=== PATIENT | female | born 1990 | race Caucasian/White ===

== ENCOUNTER 2021-08-03 20:23 | Inpatient (IN) | payer BC, OTHER, SELFPAY ==
[2021-08-03] VITALS (13 sets, daily range): BP systolic 107–130; BP diastolic 66–83; PULSE 57–80; RESP 16; BMI 22.6
[2021-08-03 22:50] LABS: Basophils % 0.1 %; Eosinophils % 0.4 %; Hematocrit 36.1 % (37.0-47.0); Lymphocytes # 1.7 10^3/uL (0.8-4.8); Lymphocytes % 23.8 %; Mean Corpuscular HGB Conc 33.2 g/dL (30.0-36.0); Mean Corpuscular Hemoglobin 28.4 pg (28.0-34.0); Mean Corpuscular Volume 85.3 fl (81-99); Mean Platelet Volume 10.5 fL (7.4-10.4); Monocytes # 0.5 10^3/uL (0.2-0.9); Monocytes % 6.5 %; Neutrophils # 4.89 10^3/uL (1.8-7.7); Neutrophils % 68.6 %; Nucleated Red Blood Cells % 0 %; Platelet Count 249 10^3/cmm (130-400); Red Blood Count 4.23 10^6/uL (4.1-5.3); Red Cell Distribution Width 12.9 % (12.1-15.1); White Blood Count 7.1 10^3/uL (4.0-10.0)
[2021-08-04] VITALS (39 sets, daily range): BP systolic 108–150; BP diastolic 62–92; PULSE 49–90; TEMP 36.4–37.2; O2SAT 97–99
[2021-08-04] MEDS: alum-mag-hydroxide-sime 30 mL UDC PO (01:47)
[2021-08-04 09:28] LABS: Glucose Point of Care 79 mg/dL (70-110)
[2021-08-04] MEDS: dextrose 5%-lactated ringers 1,000 ML 125 ML IV (17:11)
[2021-08-04] MEDS: oxytocin 30 UNIT/500 ML BAG 4 UNIT IV (17:20)
[2021-08-04] MEDS: lactated ringers 1,000 ML 999 ML IV (19:50)
--- NOTE | 2021-08-04 20:57 | ANES.PREANE2 ---
Pre-Anesthetic Assessment Height/Weight: Height 1.68 m Weight 63.503 kg Temp Pulse Resp BP 98.4 F 64 16 133/91 08/04/21 18:57 08/04/21 19:59 08/03/21 22:06 08/04/21 19:59 Preop Diagnosis: labor epidural Familial anesthetic complications: Grandfather on moms side had MH. Nobody in family has been tested Was Beta Pattie taken within 24 hours: N/A Was Clonidine taken within 24 hours: N/A Last Intake: 14:00 Social No alcohol and No tobacco Exam alert, oriented x 3, clear to auscultation bilaterally and regular rate & rhythm Airway Submandibular: within normal limits Cervical ROM: within normal limits Mallampati: Class II Dentition: full Pulmonary None reported CV/HEM None reported None reported Hepatic None reported GI Gastroesophageal Reflux Disease (with ) Metabolic Diabetes Mellitus (gestational DM diet controlled) and None reported Musc/skel None reported Neuropsych None reported Anesthetic Plan ASA status: 2 Anesthesia: Regional (specify below) (epidural) Risk of > 500 ml blood loss (7ml/kg in children): No Medications/Allergies Home Medications Medication Instructions Recorded Confirmed Last Taken Type No Known Home Medications 08/04/21 08/04/21 Unknown History Allergies Allergy/AdvReac Type Severity Reaction Status Date / Time No Known Allergies Allergy Verified 08/04/21 09:15 Current Medications Generic Name Dose Route Start Last Admin Trade Name Freq PRN Reason Stop Dose Admin Al Hydrox/Mg Hydrox/Simethicone 30 ml 08/03/21 22:06 08/04/21 01:47 Pdvc-Vqi-Gfdfzagqi-Jewel 30 Ml Udc PO 30 ml Q4H PRN Administration INDIGESTION Dextrose/Lactated Ringer's 1,000 mls @ 125 mls/hr 08/03/21 22:15 08/04/21 17:11 Dextrose 5%-Lactated Ringers IV 125 mls/hr .Q8H SHIV Administration Oxytocin 30 unit in 500 mls @ 1 mls/hr 08/04/21 16:30 08/04/21 19:40 Pitocin IV 18 milliunit/min .Q24H SHIV 18 mls/hr Titration Protocol 1 MILLIUNIT/MIN Lactated Ringer's 1,000 mls @ 999 mls/hr 08/04/21 19:44 08/04/21 19:50 Lactated Ringers IV 999 mls/hr .Q1H1M PRN Administration See label comments PFSH Anesthesia Female Reproductive History : 2 Data Anesthesia : 08/03/21 22:35 Short CBC 08/03/21 Range/Units 22:35 WBC 7.1 (4.0-10.0) 10^3/uL Hgb 12.0 (11.5-15.3) g/dL Hct 36.1 L (37.0-47.0) % MCV 85.3 (81-99) fl Plt Count 249 (130-400) 10^3/cmm Neut % (Auto) 68.6 % Neut # (Auto) 4.89 (1.8-7.7) 10^3/uL Cardiac Studies: No Data to Display
--- NOTE | 2021-08-04 21:35 | ANES.PROC ---
Anesthesia Procedures Procedure/Date: 08/04/21 Epidural: Time Out Performed: Yes Consents Signed: Procedure Consent and NPO Consent Consent: requested by attending/covering physician, from patient, risks and benefits reviewed and patient agrees to proceed Lumbar Level: L3-L4 Epidural position: sitting Epidural procedure: sterile prep of area (betadine), 1% lidocaine to numb the area (3ml), 18 g needle, negative for paresthesia passed, neg for paresthesia, test dose given, 1.5% xylocaine 1:200k epi (5ml), 0.2% Ropivacaine bolus ml (5ml), placed PCEA, no systemic response, sterile dressing applied, L.U.D. no apparent complications and 0.2% Ropiavacaine @ mls/hr (13ml/hr)
[2021-08-04] MEDS: ondansetron 2 mg/ML SDV 2 mL 4 MG IVP (22:49)
[2021-08-05] VITALS (43 sets, daily range): BP systolic 91–148; BP diastolic 49–91; PULSE 51–93; RESP 16–18; TEMP 36.5–36.9; O2SAT 98
[2021-08-05] MEDS: alum-mag-hydroxide-sime 30 mL UDC PO ×2 (00:28→05:23)
[2021-08-05] MEDS: dextrose 5%-lactated ringers 1,000 ML 125 ML IV (07:35)
[2021-08-05] MEDS: oxytocin 30 UNIT/500 ML BAG 600 UNIT IV (07:35)
[2021-08-05] MEDS: ibuprofen 800 mg tablet PO ×3 (10:51→20:21)
[2021-08-05] MEDS: benzocaine-menthol 78 gm Canister 1 SPRAY TOPICAL (10:51)
[2021-08-05] MEDS: lanolin oint 7 gm 1 APPLIC TOPICAL (10:52)
--- NOTE | 2021-08-05 17:22 | PM.OPHPUD ---
Labor & Delivery H&P Update Date of Procedure: August 04, 2021 Date H&P Performed: 08/04/21 Changes to previous documentation: IUP at 39 weeks 3 days gestation GDM, diet controlled Preop diagnosis: induction of labor Planned procedure: expectant management of labor and delivery
--- NOTE | 2021-08-05 17:24 | PM.DELIVERY ---
Delivery Note: Date of delivery: August 05, 2021 Procedure: Normal spontaneous vaginal delivery Delivering Physician: Yohana Zayas MD Estimated blood loss (mL): 200 Pre-Delivery Course: The patient had routine care at [facility]. She is blood type O positive antibody negative, hepatitis B surface antigen nonreactive, hepatitis C antibody nonreactive, HIV nonreactive, RPR nonreactive, rubella nonimmune, UDS negative, +diet controlled GDM, GBS negative. Delivery: This is a 31-year-old G2, P1 at 39 weeks 3 days gestation here for induction secondary to diet-controlled GDM. She was initially planned for induction the evening of 08/03 but due to unexpected pt load and staffing shortage her induction was delayed until 08/04. She received an epidural for pain management. She had spontaneous rupture of membranes with clear fluid. Rupture of membranes was less than 1 hour prior to delivery. Her labor progressed precipitously after that and she was complete and ready to push. She had a normal spontaneous vaginal delivery of a viable female weight 6 pounds 5 ounces, APGARS 8/9 over an intact perineum. The was suctioned at delivery and placed on the mother's chest. The cord was clamped and cut. The placenta was delivered grossly intact and normal to inspection. There was a small first-degree perineal laceration that was sutured using 3-0 chromic. Mother was doing well after delivery. required brief CPAP to transition. Coding Level of Care Code Acute Air Conditioning Unit Assembler for Chg Enmanuel
[2021-08-05 20:06] LABS: Hematocrit 30.7 % (37.0-47.0); Hemoglobin 10.4 g/dL (11.5-15.3); Mean Corpuscular HGB Conc 33.9 g/dL (30.0-36.0); Mean Corpuscular Hemoglobin 28.7 pg (28.0-34.0); Mean Corpuscular Volume 84.6 fl (81-99); Mean Platelet Volume 10.6 fL (7.4-10.4); Platelet Count 208 10^3/cmm (130-400); Red Blood Count 3.63 10^6/uL (4.1-5.3); Red Cell Distribution Width 12.8 % (12.1-15.1)
[2021-08-05] MEDS: docusate sodium 100 mg Capsule PO (20:21)
[2021-08-06 00:34] VITALS: BP 113/73; PULSE 68; O2SAT 97
[2021-08-06 04:38] VITALS: BP 118/71; PULSE 57; TEMP 36.6; O2SAT 97
[2021-08-06] MEDS: ibuprofen 800 mg tablet PO (10:16)
[2021-08-06] MEDS: prenatal vitamin Capsule 1 CAP PO (10:16)
[2021-08-06] MEDS: docusate sodium 100 mg Capsule PO (10:17)
[2021-08-06 10:20] VITALS: BP 111/80; PULSE 85; RESP 18; O2SAT 97
--- NOTE | 2021-08-06 12:35 | PM.DCS ---
Discharge Providers Date of Admission: 08/03/21 20:23 Date of Discharge: August 06, 2021 Attending Provider at Admission: Yohana Zayas MD Attending Provider at Discharge: Yohana Zayas MD Reason for Visit Reason for Visit: Induction Hospital Course Hospital Course This is a 31-year old G2, P2 at 39 weeks 3 days gestation who was admitted for induction secondary to gestational diabetes mellitus. She had a normal spontaneous vaginal delivery of a viable female . Mother and infant did well after delivery. Mother was ambulating, tolerating a regular diet, had no pain, had average vaginal bleeding and was comfortable with discharge home. Physical Exam Narrative: Walking around the room with visitors, alert and oriented, heart regular rate and rhythm, lungs clear to auscultation bilaterally, abdomen is soft and nontender, fundus is firm and U- 3, extremities have no calf tenderness and no edema Urinary Catheter Management: Olvera: Cath Placed During This Visit: yes, but has since been removed by the nurse Reason for Continuing Indwelling Catheter: Decision to DC Catheter Urinary Catheter Date of Insertion: 08/04/21 Urinary Catheter Time of Insertion: 22:02 Date Urinary Catheter Removed: 08/05/21 Time Urinary Catheter Discontinued: 06:50 Discharge Data Studies Completed and Pending Laboratory Results WBC 11.0 10^3/uL (4.0-10.0) H 08/05/21 19:45 RBC 3.63 10^6/uL (4.1-5.3) L 08/05/21 19:45 Hgb 10.4 g/dL (11.5-15.3) L 08/05/21 19:45 Hct 30.7 % (37.0-47.0) L 08/05/21 19:45 MCV 84.6 fl (81-99) 08/05/21 19:45 MCH 28.7 pg (28.0-34.0) 08/05/21 19:45 MCHC 33.9 g/dL (30.0-36.0) 08/05/21 19:45 RDW 12.8 % (12.1-15.1) 08/05/21 19:45 Plt Count 208 10^3/cmm (130-400) 08/05/21 19:45 MPV 10.6 fL (7.4-10.4) H 08/05/21 19:45 Neut % (Auto) 68.6 % 08/03/21 22:35 Lymph % (Auto) 23.8 % 08/03/21 22:35 [place] % (Auto) 6.5 % 08/03/21 22:35 Eos % (Auto) 0.4 % 08/03/21 22:35 Baso % (Auto) 0.1 % 08/03/21 22:35 Neut # (Auto) 4.89 10^3/uL (1.8-7.7) 08/03/21 22:35 Lymph # (Auto) 1.7 10^3/uL (0.8-4.8) 08/03/21 22:35 [place] # (Auto) 0.5 10^3/uL (0.2-0.9) 08/03/21 22:35 Eos # (Auto) 0.0 10^3/uL (0.0-0.8) 08/03/21 22:35 Baso # (Auto) 0.0 10^3/uL (0.0-0.1) 08/03/21 22:35 Nucleated RBC % (auto) 0 % 08/03/21 22:35 Nucleated RBCs # 0.0 /100WBC 08/03/21 22:35 POC Glucose 79 mg/dL (70-110) 08/03/21 22:40 Vitals Last Vital Signs Temp 97.9 F 08/06/21 04:38 Pulse 85 08/06/21 10:20 Resp 18 08/06/21 10:20 BP 111/80 08/06/21 10:20 Pulse Ox 97 08/06/21 10:20 Discharge Plan Discharge Patient Disposition: Home Condition: Stable Prescriptions: No Action No Known Home Medications 0RF Discharge Orders: Discharge Order (Routine); Ordered 08/06/21 Ordered By: Yohana Zayas Referrals: Yohana Zayas MD [Physician] - 1 month Discharge Diet: Usual diet Discharge Activity: Limit activity as instructed Patient Instructions: Depression (GEN), Bleeding (DC), Preeclampsia and Eclampsia After Delivery (GEN), OB Discharge Report, OB Food/Drug Interaction Guide, Opioid Safety, OB Home Care, OB Vaginal Deliveries Discharge Attestations Time Spent in Discharge Care*: less than 30 min Quality Metrics Clinical Quality Measures [ No reported AMI, CVA or VTE this stay] Coding Level of Care Code Acute Chg FW DC note
[2021-08-06 13:15] VITALS: BP 113/76; PULSE 83; RESP 18; TEMP 36.8; O2SAT 98
[2021-08-06 13:20] VITALS: BP 113/76; PULSE 83; RESP 18; TEMP 36.8; O2SAT 98
--- NOTE | 2021-08-08 17:18 | ANE.PACU2 ---
Inpatient post-anesthesia follow up: Airway intact: Yes Vital signs: Temperature 98.2 F Pulse Rate 83 Respiratory Rate 18 Blood Pressure 113/76 Pulse Oximetry 98 Oxygen Delivery Me thod Room Air Oxygen Flow Rate Fraction of Inspir ed Oxygen Hydration adequate: Yes Nausea and vomiting: No Pain level: 1 Mental status: Baseline Additional Comments: EMR review
== END 2021-08-06 13:25 | disposition home or self-care (01) | DRG 807 ==
PROVIDERS: Admitting Provider Family Medicine; Visit Provider Family Medicine
DX: O24.420 Gestational diabetes mellitus in childbirth, diet controlled (principal); Z37.0 Single live birth; Z3A.39 39 weeks gestation of pregnancy; O62.3 Precipitate labor
CPT/HCPCS: 36415; 36416; 51702; 59025; 59409; 82962; 85025; 85027; J2405; J2795

== ENCOUNTER 2024-07-19 22:15 | Observation (INO) | payer BC, SELFPAY ==
[2024-07-19 22:20] VITALS: BP 110/73; PULSE 79; RESP 14; TEMP 36.6; O2SAT 100
[2024-07-19 22:24] VITALS: BP 106/74; PULSE 83; O2SAT 100
--- NOTE | 2024-07-19 22:31 | USR_ITS ---
PROCEDURE INFORMATION: Exam: US Duplex Artery or Vein of the Abdominal and/or Reproductive Organs, Limited Ovaries Exam date and time: 07/19/2024 11:04 PM Age: 34 years old Clinical indication: Pelvic pain; Additional info: [facility] pelvic pain TECHNIQUE: Imaging protocol: Real-time duplex ultrasound scan of the arterial or venous flow with garcia scale, color Doppler flow and spectral waveform analysis with image documentation. Limited duplex exam focused on the ovaries. Duplex exam was performed to evaluate for torsion and other vascular conditions. COMPARISON: 1. US OB >= 14 weeks fetus [id number] 03/27/2021 9:43 AM 2. US OB limited [id number] 08/02/2017 11:55 PM FINDINGS: Right ovary/adnexa: Normal vascular Doppler waveforms in the ovary. No evidence of ovarian torsion. Left ovary/adnexa: Normal vascular Doppler waveforms in the ovary. No evidence of ovarian torsion. PROCEDURE INFORMATION: Exam: US Pelvis Transabdominal, Limited, and US Pelvis Transvaginal, Non-Obstetric Exam date and time: 07/19/2024 11:04 PM Age: 34 years old Clinical indication: Pelvic pain; Additional info: [facility] pelvic pain TECHNIQUE: Imaging protocol: Real-time transabdominal and transvaginal pelvic ultrasound (non-obstetric) with image documentation. Transabdominal imaging is limited. Transvaginal imaging was used for better evaluation of the endometrium, adnexa, and/or cervix. COMPARISON: No relevant prior studies available. FINDINGS: Uterus: Uterus is normal, measuring 7.0 x 4.7 x 6.5 cm. Endometrial stripe is normal, measuring 7 mm thickness. Right ovary/adnexa: Normal ovary measures 1.9 x 2.5 x 3.5 cm for a calculated volume of 9 cc. No mass. Normal ovarian blood flow on Doppler analysis. Left ovary/adnexa: Normal ovary measures 3.1 x 1.8 x 2.8 cm for a calculated volume of 8.3 cc. No mass. Normal ovarian blood flow on Doppler analysis. Urinary bladder: Urinary bladder is limited. Intraperitoneal space: No free fluid. US/US pelvis lmt w transvag IMPRESSION: Normal duplex of the ovaries. No evidence of ovarian torsion. IMPRESSION: No acute findings.
[2024-07-19 22:54] VITALS: BP 107/69; PULSE 70; RESP 16; O2SAT 100
[2024-07-19 22:58] LABS: Basophils % 0.3 %; Eosinophils # 0.1 10^3/uL (0.0-0.8); Eosinophils % 1.2 %; Hematocrit 40.3 % (36-47); Lymphocytes # 1.8 10^3/uL (0.8-4.8); Lymphocytes % 15.3 %; Mean Corpuscular Volume 88.4 fl (85-98); Mean Platelet Volume 9.2 fL (7.4-10.4); Monocytes # 0.5 10^3/uL (0.2-0.9); Monocytes % 4.7 %; Neutrophils # 9.06 10^3/uL (1.8-7.7); Neutrophils % 78.1 %; Nucleated Red Blood Cells % 0 %; Platelet Count 249 10^3/cmm (157-399); Red Blood Count 4.56 10^6/uL (3.85-5.65); Red Cell Distribution Width 12.3 % (12.1-15.1); White Blood Count 11.59 10^3/uL (3.29-11.43)
[2024-07-19 22:59] LABS: HCG Qualitative Urine. Negative (Negative)
--- NOTE | 2024-07-19 22:59 | PC.NURSE ---
PT REFUSED MORPHINE AND ZOFRAN. PT REPORTS NOT NEEDED AT THIS TIME.
[2024-07-19 23:14] LABS: Alanine Aminotransferase 17 U/L (0-33); Albumin Level 4.3 g/dL (3.5-5.2); Alkaline Phosphatase 79 U/L (35-105); Anion Gap 15.3 (5-19); Aspartate Amino Transferase 18 U/L (0-32); Blood Urea Nitrogen 24 mg/dL (6-20); Carbon Dioxide 25 mmol/L (22-29); Chloride 98 mmol/L (98-107); Creatinine Clr Calc Pharmacy 127.2391; Globulin 2.8 g/dL (1.3-4.6); Glomerular Filtration Rate 115.1 mL/min (90-130); Glucose 148 mg/dL (65-115); Osmolality Calculated 287 mOsm/kg (285-295); Potassium 3.3 mmol/L (3.5-5.1); Sodium 135 mmol/L (136-145); Total Bilirubin 0.2 mg/dL (0.15-1.2); Total Protein 7.1 g/dL (6.6-8.7)
[2024-07-19 23:24] VITALS: BP 126/70; PULSE 88; O2SAT 100
[2024-07-19 23:24] LABS: Bilirubin Urine Negative (Negative); Blood Urine Negative (Negative); Glucose Urine UA Negative (Normal); Ketones Urine Negative (Negative); Leukocyte Esterase Urine Trace (Negative); Nitrate Urine Negative (Negative); Protein Urine Negative (Negative); Specific Gravity, Urine 1.019 (1.005-1.030); Urine Appearance Clear (CLEAR); Urine Color Yellow (Yellow); Urobilinogen Urine 0.2 mg/dL (Negative); pH Urine 6.5 (5-7)
[2024-07-19 23:26] LABS: Add Urine Microscopic? YES; Bacteria Urine Trace /hpf; Hyaline Casts Urine 0-4 /lpf; RBC Urine 0-2 /hpf (0-2); Squamous Epithelial Cell Urine 0-5 /hpf (0-5); WBC Urine 0-5 /hpf (0-5)
[2024-07-19 23:30] VITALS: PULSE 74; O2SAT 98
--- NOTE | 2024-07-19 23:54 | CTR_ITS ---
PROCEDURE INFORMATION: Exam: CT Abdomen And Pelvis With Contrast Exam date and time: 07/20/2024 12:16 AM Age: 34 years old Clinical indication: Abdominal pain; Localized; Right lower quadrant (rlq); Additional info: Rlq pain TECHNIQUE: Imaging protocol: Computed tomography of the abdomen and pelvis with contrast. Radiation optimization: All CT scans at this facility use at least one of these dose optimization techniques: automated exposure control; mA and/or kV adjustment per patient size (includes targeted exams where dose is matched to clinical indication); or iterative reconstruction. Contrast material: OMNI 350; Contrast volume: 100 ml; Contrast route: INTRAVENOUS (IV); COMPARISON: US pelvis lmt w transvag 07/19/2024 11:04 PM RADIATION DOSE METRICS: Total DLP (mGy-cm): 372.7 FINDINGS: Diaphragm: Small hiatal hernia. Liver: 1 cm right hepatic hypodensity on axial image 11 of series 3 shows subtle peripheral nodular discontinuous postcontrast enhancement on coronal image 22 of series 5 compatible with hemangioma. Otherwise unremarkable. Gallbladder and biliary ducts: Normal. No calcified stones. No ductal dilation. Pancreas: Normal. No ductal dilation. Spleen: Normal. No splenomegaly. Adrenal glands: Normal. No mass. Kidneys and ureters: Normal. No hydronephrosis. Stomach and bowel: Unremarkable. No bowel dilatation to suggest obstruction. Appendix: Mildly dilated fluid-filled appendix measuring 9 mm diameter with suggested slight periappendiceal fat stranding. Intraperitoneal space: Trace free pelvic fluid. No free air or focal well organized fluid collection. Vasculature: Unremarkable. No abdominal aortic aneurysm. Lymph nodes: Unremarkable. No enlarged lymph nodes. Urinary bladder: Unremarkable as visualized. Reproductive: Crenulated left ovarian corpus luteum. Otherwise unremarkable as visualized. Bones/joints: Unremarkable. No acute fracture. Soft tissues: Unremarkable. CT/CT abdomen pelvis w con* [id number] IMPRESSION: Findings suspicious for acute uncomplicated appendicitis.
[2024-07-20] VITALS (17 sets, daily range): BP systolic 92–132; BP diastolic 54–99; PULSE 54–98; RESP 12–19; TEMP 36.5–36.8; O2SAT 94–100; BMI 22.1
[2024-07-20] MEDS: iohexol 350 mg/mL 500 mL Btl (per mL) IV (00:20)
--- NOTE | 2024-07-20 01:07 | ED_ITS ---
HPI - Abdominal Pain 2 General: Chief Complaint: Abdominal Pain Stated Complaint: R lower ABD down Nausa Time Seen by Provider: 07/19/24 22:25 History of Present Illness: Patient with right lower quadrant abdominal pain that started tonight about 3 hours prior. Has had nausea but no vomiting. Related Data Date of Last Menstrual Period: 07/04/24 Home Medications ?Medication ?Instructions ?Recorded ?Confirmed No Known Home Medications 08/04/2107/14 Allergies Allergy/AdvReac Type Severity Reaction Status Date / Time No Known Allergies Allergy Verified 07/19/24 22:24 [facility] ED 2 Female Reproductive History: Date of last menstrual period: 07/04/24 Physical Exam 2 Const: COMMON NORMALS: no acute distress, average body habitus, patient oriented x3, no limitations, healthy appearing, alert and well nourished Neck/C-Spine: COMMON NORMALS: no JVD Resp: COMMON NORMALS: normal respiratory effort, No retractions, No use of accessory muscles, clear to auscultation bilaterally and percussion normal A USCULTATION: clear to auscultation bilaterally PERCUSSION: percussion normal Cardio: COMMON NORMALS: no JVD, regular rate, regular rhythm, S1 normal heart sound present, S2 normal heart sound present, No gallops present (Cardio), No clicks present (Cardio), No murmurs present (Cardio), No rub (Cardio) and Peripheral pulses 2+ throughout RATE: regular rate RHYTHM: regular rhythm HEART SOUNDS: S1 normal heart sound present and S2 normal heart sound present PERIPHERAL PULSES: Peripheral pulses 2+ throughout GI: COMMON NORMALS: Normal to inspection, nondistended, normoactive bowel sounds present, Soft to palpation, No hepatosplenomegaly present, no masses and no bruits PALPATION: Yes Soft to palpation and Yes No hepatosplenomegaly present OTHER: Right lower quadrant abdominal pain to palpation. Neuro: COMMON NORMALS: patient oriented x3 SENSORIUM/ORIENTATION: Yes alert Course 2 Vital Signs: Vital signs: Vital Signs Temperature 97.9 F 07/19/24 22:20 Pulse Rate 70 07/20/24 00:30 Respiratory Rate 16 07/19/24 22:54 Blood Pressure 111/67 07/20/24 00:30 Pulse Oximetry 96 07/20/24 00:30 Oxygen Delivery Me thod Room Air 07/19/24 23:30 MDM - Abdominal Pain Medical Decision Making Patient with right lower quadrant abdominal pain x 3 hours. Has had nausea but no vomiting. No fever. Has mild leukocytosis. CT concerning for acute uncomplicated appendicitis. Patient given IV Zosyn here. Currently pain-free. Will keep n.p.o. and admit to Dr. Bains. Lab Data 07/19/24 22:45 07/19/24 22:45 Labs/Radiology: Radiology Impressions Pelvic/Transvag US 07/19/24 22:31 IMPRESSION: Normal duplex of the ovaries. No evidence of ovarian torsion. IMPRESSION: No acute findings. Abdomen/Pelvis CT 07/19/24 23:54 IMPRESSION: Findings suspicious for acute uncomplicated appendicitis. ADDENDUM: 07/20/24 0050 THIS REPORT CONTAINS FINDINGS THAT MAY BE CRITICAL TO PATIENT CARE. The findings were verbally communicated via telephone conference with DOM THOMAS at 12:48 AM CDT on 07/20/2024. The findings were acknowledged and understood. Laboratory Results WBC 11.59 10^3/uL (3.29-11.43) H 07/19/24 22:45 RBC 4.56 10^6/uL (3.85-5.65) 07/19/24 22:45 Hgb 13.70 g/dL (11.27-16.99) 07/19/24 22:45 Hct 40.3 % (36-47) 07/19/24 22:45 MCV 88.4 fl (85-98) 07/19/24 22:45 MCH 30.0 pg (27-33) 07/19/24 22:45 MCHC 34.0 g/dL (30-55) 07/19/24 22:45 RDW 12.3 % (12.1-15.1) 07/19/24 22:45 Plt Count 249 10^3/cmm (157-399) 07/19/24 22:45 MPV 9.2 fL (7.4-10.4) 07/19/24 22:45 Neut % (Auto) 78.1 % 07/19/24 22:45 Lymph % (Auto) 15.3 % 07/19/24 22:45 [place] % (Auto) 4.7 % 07/19/24 22:45 Eos % (Auto) 1.2 % 07/19/24 22:45 Baso % (Auto) 0.3 % 07/19/24 22:45 Neut # (Auto) 9.06 10^3/uL (1.8-7.7) H 07/19/24 22:45 Lymph # (Auto) 1.8 10^3/uL (0.8-4.8) 07/19/24 22:45 [place] # (Auto) 0.5 10^3/uL (0.2-0.9) 07/19/24 22:45 Eos # (Auto) 0.1 10^3/uL (0.0-0.8) 07/19/24 22:45 Baso # (Auto) 0.0 10^3/uL (0.0-0.1) 07/19/24 22:45 Nucleated RBC % (auto) 0 % 07/19/24 22:45 Nucleated RBCs # 0.0 /100WBC 07/19/24 22:45 Sodium 135 mmol/L (136-145) L 07/19/24 22:45 Potassium 3.3 mmol/L (3.5-5.1) L 07/19/24 22:45 Chloride 98 mmol/L (98-107) 07/19/24 22:45 Carbon Dioxide 25 mmol/L (22-29) 07/19/24 22:45 Anion Gap 15.3 (5-19) 07/19/24 22:45 BUN 24 mg/dL (6-20) H 07/19/24 22:45 Creatinine 0.6 mg/dL (0.5-0.9) 07/19/24 22:45 GFR Calculation 115.1 mL/min (90-130) 07/19/24 22:45 Glucose 148 mg/dL (65-115) H 07/19/24 22:45 Calculated Osmolality 287 mOsm/kg (285-295) 07/19/24 22:45 Calcium 9.0 mg/dL (8.5-10.5) 07/19/24 22:45 Total Bilirubin 0.2 mg/dL (0.15-1.2) 07/19/24 22:45 AST 18 U/L (0-32) 07/19/24 22:45 ALT 17 U/L (0-33) 07/19/24 22:45 Alkaline Phosphatase 79 U/L (35-105) 07/19/24 22:45 Total Protein 7.1 g/dL (6.6-8.7) 07/19/24 22:45 Albumin 4.3 g/dL (3.5-5.2) 07/19/24 22:45 Globulin 2.8 g/dL (1.3-4.6) 07/19/24 22:45 HCG, Qual Negative (Negative) 07/19/24 22:45 Urine Color Yellow (Yellow) 07/19/24 22:45 Urine Appearance Clear (CLEAR) 07/19/24 22:45 Urine pH 6.5 (5-7) 07/19/24 22:45 Ur Specific [place] 1.019 (1.005-1.030) 07/19/24 22:45 Urine Protein Negative (Negative) 07/19/24 22:45 Urine Glucose (UA) Negative (Normal) 07/19/24 22:45 Urine Ketones Negative (Negative) 07/19/24 22:45 Urine Blood Negative (Negative) 07/19/24 22:45 Urine Nitrate Negative (Negative) 07/19/24 22:45 Urine Bilirubin Negative (Negative) 07/19/24 22:45 Urine Urobilinogen 0.2 mg/dL (Negative) 07/19/24 22:45 Ur Leukocyte Esterase Trace (Negative) A 07/19/24 22:45 Urine RBC 0-2 /hpf (0-2) 07/19/24 22:45 Urine WBC 0-5 /hpf (0-5) 07/19/24 22:45 Ur Squamous Epith Cells 0-5 /hpf (0-5) 07/19/24 22:45 Amorphous Sediment Not Reportable 07/19/24 22:45 Urine Bacteria Trace /hpf (NONE) 07/19/24 22:45 Hyaline Casts 0-4 /lpf H 07/19/24 22:45 All radiology interpretation(s) finalized by discharge Discharge Plan Discharge Patient Disposition: Admitted As Inpatient Clinical Impression: Acute appendicitis Qualifiers: Acute appendicitis type: with localized peritonitis Appendicitis gangrene presence: without gangrene Appendicitis perforation presence: without perforation Appendicitis abscess presence: without abscess Qualified Code(s): K 35.30 - Acute appendicitis with localized peritonitis, without perforation or gangrene Condition: Stable Coding Level of Care Code ED Boiler Cleaner for Ross Singer
[2024-07-20] MEDS: piperacillin-tazobactam 3.375 GM in sodium chloride 0.9% (plus) 50 ML IV ×3 (01:16→18:24)
[2024-07-20] MEDS: sodium chloride 0.9% 1,000 ML 100 ML IV ×2 (01:28→12:09)
--- NOTE | 2024-07-20 06:08 | PC.NURSE ---
During admission assessment this nurse completed the surgery pre-op check list. Pt endorses a family history (maternal grandfather) of malignant hyperthermia. It was noted on the check list. This nurse spoke to Leyda, charge nurse for OPS to inform her of pt reported family history.
[2024-07-20] MEDS: ketorolac 30 mg/mL INJ 15 MG IVP (06:28)
--- NOTE | 2024-07-20 06:46 | P.HP_ITS ---
Providers/Chief Complaint 2 Admitting Physician: Derek Jamison MD Chief Complaint: R lower ABD down Nausa History of Present Illness Monalisa Mosley is a 34 year old female Who presents to the hospital complaining of right lower quadrant abdominal pain over the last 24 hours. Pain Is sharp and continues patient states about an 8/10. After medication being given in the ER It has improved. Review of Systems 2 General: Reports: 10 or more systems reviewed and unremarkable except in HPI and below Medications/Allergies Home Medications ?Medication ?Instructions ?Recorded ?Confirmed ?Last Taken ?Type No Known Home Medications 08/04/2107/14 Unknown History Allergies Allergy/AdvReac Type Severity Reaction Status Date / Time No Known Allergies Allergy Verified 07/19/24 22:24 PFSH Acute 2 Female Reproductive History: Date of last menstrual period: 07/04/24 Vitals/I&O/Wt Last Vital Signs Temp 98.1 F 07/20/24 04:09 Pulse 77 07/20/24 04:09 Resp 16 07/20/24 04:09 BP 102/62 07/20/24 04:09 Pulse Ox 97 07/20/24 04:09 O2 Del Method Room Air 07/20/24 04:09 07/19/24 07/19/24 07/20/24 14:59 22:59 06:59 Intake Total 50 / 50 Balance 50 / 50 Weight last 48 hrs Weight 140 lb Weight 137 lb Weight 137 lb Physical Exam 2 GI: OTHER: Abdomen exam is benign abdomen is soft there is some tenderness in the right lower quadrant is nondistended. Data 07/19/24 22:45 07/19/24 22:45 A&P Assessment and plan (1) Acute appendicitis: Plan 34-year-old female who presents with acute appendicitis verified by imaging. After discussion Overall risks and benefits I have offered her laparoscopic possible open appendectomy. I discussed the risk of bleeding, infection, need for additional interventions, hernia formation, perforation, injury to adjacent structures including the colon and the small bowel ureter. Patient shows understanding she is agreeable to proceed. We will keep her n.p.o. we will continue antibiotics and pain management, our case will be scheduled for next available OR time PDMP PDMP Reviewed: Not Reviewed Attestations 2 Medical Necessity Statement*: Plan is for possible discharge home after surgery Coding Level of Care Code Acute Code for [facility] Fwd Diagnoses Acute appendicitis K35.30 Acute appendicitis type: with localized peritonitis Appendicitis abscess presence: without abscess Appendicitis gangrene presence: without gangrene Appendicitis perforation presence: without perforation
[2024-07-20] MEDS: sodium chloride 0.9% 1,000 ML 30 ML (16:07)
[2024-07-20] MEDS: scopolamine 1 mg PATCH 1 PATCH TRANSDERMA (16:45)
[2024-07-20] MEDS: BUPivacaine 0.25% INJ 10 mL INJECTION (19:16)
[2024-07-20] MEDS: lidocaine-epi 1% 20 mL INJ 10 ML INJECTION (19:17)
--- NOTE | 2024-07-20 19:25 | P.OP_ITS ---
Operative Report Date of procedure: July 20, 2024 Pre-op diagnosis: Acute appendicitis Post-op diagnosis: Same Post-op findings: Inflamed retrocecal appendix. No perforation Procedure done: Laparoscopic appendectomy Specimens removed/disposition: Appendix Surgeon: Derek Jamison MD Ball Rolling Machine Operator: MARYBETH OR STaff Estimated blood loss: 5 Complications: none Brief History: 34-year-old female who presents to the hospital with right lower quadrant abdominal pain CT scan shows evidence of acute appendicitis. After discussion of all risk and benefits as documented in my preop note decided to proceed to the OR for laparoscopic possible open appendectomy. Procedure: Patient was brought into the OR, she was placed in the supine position. General anesthesia was given. The abdomen was prepped and draped in the usual sterile fashion. Timeout was conducted. The abdomen was accessed via infraumbilical incision with an open technique, a 12 mm Trocar Was Placed and Fixed to the Fascia with 0 Vicryl. Initial Pneumoperitoneum Was Done No Evidence of Visceral Injury during Entry. Additional 5 Mm Trocars Were Placed in the Suprapubic and Left Lower Quadrant Positions. The Patient Was Placed in a Steep Trendelenburg with the Left Side down Position. The Cecum Was Identified, I Then Mobilized the Cecum Medially and Appendix Was Noted to Be in a Retrocecal but Intraperitoneal Position. With Careful Dissection with LigaSure I Was Able to Take down the Mesoappendix from the Tip of the Appendix to the Base. The Base Was Healthy. I Then Proceeded to Transect the Appendix at the Level of the Base Using a 45 Mm Blue Load Endo ALESSANDRO Stapler. The Appendix Was Retrieved in an Endo Catch Bag Via the Umbilical Trocar Site. The Suture Line Appeared Healthy but There Was Minimal Oozing That Was Controlled with Two 5 Mm Clips. The Omentum Was Used To Cover the Appendiceal Stump. I Then Proceeded to Remove the Umbilical Trocar and the Umbilical Trocar Site Was Closed with a Lito-Kristina Suture Passer with 0 Vicryl under Direct Visualization. The Suprapubic Trocar Was Removed under Direct Visualization, the Left Lower Quadrant Trocar Was Used To Evacuate the Pneumoperitoneum and Subsequently Removed. The Wounds Were Then Closed in Layers Using #4 Monocryl for the Skin. Local Anesthesia Was Infiltrated before Wound Closure. Dermabond Was Then Applied. At the End of the Procedure All Counts Were Correct the Patient Tolerated Well the Procedure Was Transferred to the PACU in Stable Condition.
--- NOTE | 2024-07-20 19:29 | P.DS_ITS ---
Discharge Providers Date of Admission: 07/20/24 01:12 Date of Discharge: July 20, 2024 Attending Provider at Admission: Derek Jamison MD Attending Provider at Discharge: Derek Jamison MD Diagnoses at Discharge Discharge Diagnosis (1) Acute appendicitis: Details from hospital stay: Patient admitted with acute appendicitis verified with imaging. She underwent laparoscopic appendectomy which was uncomplicated. Patient will be discharged home and will follow-up with us in 2 weeks. Status: Acute Qualifiers: Acute appendicitis type: with localized peritonitis Appendicitis abscess presence: without abscess Appendicitis gangrene presence: without gangrene Appendicitis perforation presence: without perforation Qualified Code(s): K35.30 - Acute appendicitis with localized peritonitis, without perforation or gangrene Reason for Visit Reason for Visit: R lower ABD down [place] Physical Exam GI: OTHER: Abdomen soft appropriately tender, surgical incisions covered with Dermabond. Discharge Data Studies Completed and Pending Completed Studies During Hospitalization Category Date Time Status CT abdomen pelvis w con* [id number] Stat Cat Scan 07/19/24 23:54 Completed US pelvis lmt w transvag Stat Ultrasound 07/19/24 22:31 Completed Pending at discharge Category Date Time Status Pathology: Surgical [PTH] Routine Pth 07/20/24 19:15 Ordered Radiology Impressions Pelvic/Transvag US 07/19/24 22:31 IMPRESSION: Normal duplex of the ovaries. No evidence of ovarian torsion. IMPRESSION: No acute findings. Abdomen/Pelvis CT 07/19/24 23:54 IMPRESSION: Findings suspicious for acute uncomplicated appendicitis. ADDENDUM: 07/20/24 0050 THIS REPORT CONTAINS FINDINGS THAT MAY BE CRITICAL TO PATIENT CARE. The findings were verbally communicated via telephone conference with DOM THOMAS at 12:48 AM CDT on 07/20/2024. The findings were acknowledged and understood. Laboratory Results WBC 11.59 10^3/uL (3.29-11.43) H 07/19/24 22:45 RBC 4.56 10^6/uL (3.85-5.65) 07/19/24 22:45 Hgb 13.70 g/dL (11.27-16.99) 07/19/24 22:45 Hct 40.3 % (36-47) 07/19/24 22:45 MCV 88.4 fl (85-98) 07/19/24 22:45 MCH 30.0 pg (27-33) 07/19/24 22:45 MCHC 34.0 g/dL (30-55) 07/19/24 22:45 RDW 12.3 % (12.1-15.1) 07/19/24 22:45 Plt Count 249 10^3/cmm (157-399) 07/19/24 22:45 MPV 9.2 fL (7.4-10.4) 07/19/24 22:45 Neut % (Auto) 78.1 % 07/19/24 22:45 Lymph % (Auto) 15.3 % 07/19/24 22:45 [place] % (Auto) 4.7 % 07/19/24 22:45 Eos % (Auto) 1.2 % 07/19/24 22:45 Baso % (Auto) 0.3 % 07/19/24 22:45 Neut # (Auto) 9.06 10^3/uL (1.8-7.7) H 07/19/24 22:45 Lymph # (Auto) 1.8 10^3/uL (0.8-4.8) 07/19/24 22:45 [place] # (Auto) 0.5 10^3/uL (0.2-0.9) 07/19/24 22:45 Eos # (Auto) 0.1 10^3/uL (0.0-0.8) 07/19/24 22:45 Baso # (Auto) 0.0 10^3/uL (0.0-0.1) 07/19/24 22:45 Nucleated RBC % (auto) 0 % 07/19/24 22:45 Nucleated RBCs # 0.0 /100WBC 07/19/24 22:45 Sodium 135 mmol/L (136-145) L 07/19/24 22:45 Potassium 3.3 mmol/L (3.5-5.1) L 07/19/24 22:45 Chloride 98 mmol/L (98-107) 07/19/24 22:45 Carbon Dioxide 25 mmol/L (22-29) 07/19/24 22:45 Anion Gap 15.3 (5-19) 07/19/24 22:45 BUN 24 mg/dL (6-20) H 07/19/24 22:45 Creatinine 0.6 mg/dL (0.5-0.9) 07/19/24 22:45 GFR Calculation 115.1 mL/min (90-130) 07/19/24 22:45 Glucose 148 mg/dL (65-115) H 07/19/24 22:45 Calculated Osmolality 287 mOsm/kg (285-295) 07/19/24 22:45 Calcium 9.0 mg/dL (8.5-10.5) 07/19/24 22:45 Total Bilirubin 0.2 mg/dL (0.15-1.2) 07/19/24 22:45 AST 18 U/L (0-32) 07/19/24 22:45 ALT 17 U/L (0-33) 07/19/24 22:45 Alkaline Phosphatase 79 U/L (35-105) 07/19/24 22:45 Total Protein 7.1 g/dL (6.6-8.7) 07/19/24 22:45 Albumin 4.3 g/dL (3.5-5.2) 07/19/24 22:45 Globulin 2.8 g/dL (1.3-4.6) 07/19/24 22:45 HCG, Qual Negative (Negative) 07/19/24 22:45 Urine Color Yellow (Yellow) 07/19/24 22:45 Urine Appearance Clear (CLEAR) 07/19/24 22:45 Urine pH 6.5 (5-7) 07/19/24 22:45 Ur Specific [place] 1.019 (1.005-1.030) 07/19/24 22:45 Urine Protein Negative (Negative) 07/19/24 22:45 Urine Glucose (UA) Negative (Normal) 07/19/24 22:45 Urine Ketones Negative (Negative) 07/19/24 22:45 Urine Blood Negative (Negative) 07/19/24 22:45 Urine Nitrate Negative (Negative) 07/19/24 22:45 Urine Bilirubin Negative (Negative) 07/19/24 22:45 Urine Urobilinogen 0.2 mg/dL (Negative) 07/19/24 22:45 Ur Leukocyte Esterase Trace (Negative) A 07/19/24 22:45 Urine RBC 0-2 /hpf (0-2) 07/19/24 22:45 Urine WBC 0-5 /hpf (0-5) 07/19/24 22:45 Ur Squamous Epith Cells 0-5 /hpf (0-5) 07/19/24 22:45 Amorphous Sediment Not Reportable 07/19/24 22:45 Urine Bacteria Trace /hpf (NONE) 07/19/24 22:45 Hyaline Casts 0-4 /lpf H 07/19/24 22:45 Vitals Last Vital Signs Temp 98.1 F 07/20/24 16:09 Pulse 72 07/20/24 16:09 Resp 16 07/20/24 16:09 BP 125/80 07/20/24 16:09 Pulse Ox 100 07/20/24 16:09 O2 Del Method Room Air 07/20/24 16:09 Discharge Plan Discharge Patient Disposition: Home Condition: Stable Prescriptions: New oxycodone 5 mg tablet 5 mg PO Q8H PRN (Reason: pain) 5 Days Qty: 14 0RF meloxicam 7.5 mg tablet 7.5 mg PO DAILY 5 Days Qty: 5 0RF polyethylene glycol 3350 [Miralax] 17 gram powder in packet 17 g PO DAILY 7 Days Qty: 7 0RF amoxicillin-pot clavulanate 875-125 mg tablet 1 tab PO BID 7 Days Qty: 14 0RF No Action escitalopram oxalate 10 mg tablet 10 mg PO DAILY Discharge Orders: Discharge Order (Routine); Ordered 07/20/24 Ordered By: Derek Jamison Referrals: Derek Jamison MD [Physician, General Surgery] Referral Note: 2 weeks Discharge Diet: Advance as tolerated Discharge Activity: Limit activity as instructed Patient Instructions: Appendicitis (GEN), Acute Wound Care (DC), Opioid Safety, Post Anesthesia Care Activity Restrictions/Additional Instructions: Work as much as possible this will speed up your recovery. No heavy lifting for the next 4 to 6 weeks nothing more than 10 pounds. Return to the hospital have fever chills severe abdominal pain is getting worse over time despite pain medication. If you take oxycodone do not forget to take the laxative otherwise you will get constipated. Discharge Attestations Time Spent in Discharge Care*: less than 30 min Quality Metrics Clinical Quality Measures [ No reported AMI, CVA or VTE this stay] Coding Level of Care Code Acute Code for Chg Fwd Diagnoses Acute appendicitis K35.30 Acute appendicitis type: with localized peritonitis Appendicitis abscess presence: without abscess Appendicitis gangrene presence: without gangrene Appendicitis perforation presence: without perforation
== END 2024-07-20 21:59 | disposition home or self-care (01) ==
LOC: ER 07-20 01:07 → MEDSURG 07-20 01:41
PROVIDERS: Admitting Provider Surgery; Emergency Provider Emergency Medicine; Visit Provider Surgery
PROC: 0DTJ4ZZ Resection of Appendix, Percutaneous Endoscopic Approach (ICD-10-PCS; CPT 44970; principal; 2024-07-20 17:05)
DX: K35.30 Acute appendicitis with localized peritonitis, without perforation or gangrene (principal)
CPT/HCPCS: 44970; 36415; 74177; 76830; 76857; 80053; 81001; 81025; 85025; 88304; 96365; 99285; G0378; J0330; J1100; J1171; J1200; J1885; J2250; J2405; J2543; J2704; J2710; J3010; J3490; J7030; J9999